=== PATIENT | male | born 1965 | race Two or more races ===

== ENCOUNTER 2018-12-15 07:41 | Outpatient (CLI) | payer OTHER | END 2018-12-15 07:43 | disposition home or self-care (01) | LOC: SONOGRAMA 07:41 | DX: E04.1 Nontoxic single thyroid nodule (principal) ==

== ENCOUNTER 2019-03-17 05:27 | Day surgery (SDC) | payer OTHER ==
[~2019-03-17 05:27] MED LIST: COZAAR100 MG; PROTONIX20 MG; UROXATRAL10 MG; ZANTAC150 M3
[2019-03-17] MEDS ORDERED: PERCOCET 5-3251 EACH PO (14:24)
[2019-03-17] MEDS ORDERED: NEURONTIN300 MG PO (14:24)
[2019-03-17] MEDS ORDERED: COLACE100 MG PO (14:25)
== END 2019-03-17 18:00 | disposition home or self-care (01) ==
LOC: CIR.AMB 05:27
DX: K40.20 Bilateral inguinal hernia, without obstruction or gangrene, not specified as recurrent (principal)

== ENCOUNTER 2019-11-16 11:07 | Outpatient (CLI) | payer OTHER ==
[~2019-11-16 11:07] MED LIST changes: +COLACE100 MG PO; +NEURONTIN300 MG PO; +PERCOCET 5-3251 EACH PO
== END 2019-11-16 11:14 | disposition home or self-care (01) ==
LOC: SONOGRAMA 11:07 → MAMO-SONO 11:15
PROVIDERS: ATTEND Otolaryngology
DX: E03.8 Other specified hypothyroidism (principal)

== ENCOUNTER 2020-01-10 05:15 | Inpatient (IN) | payer OTHER ==
[~2020-01-10] VITALS: Ht 170.2 cm; Wt 74.8 kg
[~2020-01-10 05:15] MED LIST changes: +HYDROCHLOROTH12.5 MG PO
[2020-01-12] MEDS ORDERED: ULTRACET (00:43)
[2020-01-12] MEDS ORDERED: TAMS0.4C PO (10:43)
[2020-01-12] MEDS ORDERED: COZAAR25 MG PO (10:43)
== END 2020-01-11 11:02 | disposition home or self-care (01) | DRG 627 ==
LOC: CIR.AMB 05:15 → ADM 08:30 → O/R 14:45 → SURG 14:45
PROVIDERS: ADMIT Otolaryngology; ATTEND Otolaryngology
PROC: 0GBH0ZZ Excision of Right Thyroid Gland Lobe, Open Approach (ICD-10-PCS; principal; 2020-01-10 07:00)
DX: C73 Malignant neoplasm of thyroid gland (principal)

== ENCOUNTER 2020-01-12 00:26 | Emergency (ER) | payer OTHER ==
[~2020-01-12] VITALS: Ht 167.6 cm; Wt 88.5 kg
[2020-01-12] MEDS ORDERED: ULTRACET (00:43)
[2020-01-12] MEDS ORDERED: COZAAR25 MG PO (10:43)
[2020-01-12] MEDS ORDERED: TAMS0.4C PO (10:43)
== END 2020-01-12 11:01 | disposition home or self-care (01) ==
LOC: ER 00:26
DX: I95.1 Orthostatic hypotension (principal); N40.0 Benign prostatic hyperplasia without lower urinary tract symptoms; Z20.828 Contact with and (suspected) exposure to other viral communicable diseases